=== PATIENT | male | born 1980 | race Caucasian/White ===

== ENCOUNTER 2021-11-17 20:24 | Emergency (ER) | payer OTHER, SELFPAY ==
[2021-11-17 20:34] VITALS: BP 140/96; PULSE 86; RESP 18; TEMP 36.8; O2SAT 99; BMI 20.9
[2021-11-17 20:40] VITALS: BP 140/96; PULSE 86; RESP 18; TEMP 36.8; O2SAT 99; BMI 20.9
[2021-11-17 20:56] LABS: Apearance,Urine Clear (Clear); Bilirubin,Urine Negative (Negative); Blood, Urine Trace (Negative); Color,Urine Yellow (Yellow); Glucose,Urine (UA) Negative (Negative); Ketones,Urine Negative (Negative); Protein,Urine Negative (Negative); UTC Leukocyte Esterase,Urine Negative (Negative); UTC Nitrate,Urine Negative (Negative); Urobilinogen,Urine 0.2 EU/dl (0.2)
--- NOTE | 2021-11-17 21:11 | HMH.EDUTC ---
[facility] [place] Disposition Clinical Impression: Groin strain Qualifiers: Encounter type: initial encounter Laterality: unspecified laterality Qualified Code(s): S76.219A - Strain of adductor muscle, fascia and tendon of unspecified thigh, initial encounter Disposition: Home, Self-Care Condition on Discharge: Good Instructions: Groin Strain, DI for Groin Strain Additional Instructions: Follow up with your Family Doctor immediately if any worsening of pain Follow up immediately if you noticed any blood in your urine or discharge Return if needed Straight to ER if any life threatening symptoms Follow up with Family Doctor if no improvement Referrals: Bradley Aaron MD [Primary Care Provider] - As needed Time of Disposition: 21:34 Medical Decision Making - Bebeto Inquiry Pt receiving controlled substance: No Bebeto was queried for this patient: No Vital Signs: 11/17/21 20:34 11/17/21 20:40 11/17/21 21:28 Temperature 98.2 F 98.2 F 98.2 F Temperature Source Oral Oral Pulse Rate 86 Pulse Rate [Right] 86 86 Respiratory Rate 18 18 18 Blood Pressure 140/96 H Blood Pressure [Right Arm] 140/96 H 140/96 H Blood Pressure Mean [Right Arm] 110 110 Blood Pressure Source [Right Arm] Automatic Cuff Blood Pressure Position [Right Arm] Sitting 02 Sat by Pulse Oximetry 99 99 Oxygen Delivery Method Room Air - Lab Data Lab results reviewed: Yes: I reviewed the patient's lab results. Lab Results 11/17/21 20:55: Urine Color Yellow, Urine Appearance Clear, Urine pH 7.0, Ur Specific [place] 1.010, Urine Protein Negative, Urine Glucose (UA) Negative, Urine Ketones Negative, Urine Blood Trace, Urine Nitrate Negative, Urine Bilirubin Negative, Urine Urobilinogen 0.2, Ur Leukocyte Esterase Negative [facility] [place] HPI - General Stated complaint: Pain in privates Time Seen by Provider: 11/17/21 21:11 Mode of Arrival: Ambulatory Source of Information: Patient Limitations: No Limitations Description of Symptoms (Recalled from Triage Doc. by RN): PATIENT C/O SHARP PAIN IN PRIVATE AREA X 2 DAYS HEENT Symptoms (Recalled from RN notes): No Resp Symptoms (Recalled from RN notes): No Skin Symptoms (Recalled from RN notes): No MS Symptoms (Recalled from RN notes): No Functional Status (Recalled from RN notes): WNL - History of Present Illness Provider Complaint: Patient states he was changing his break pads the other day and had to strain to get the lug nuts to break State that he has been having pain in his groin area ever since not sure if he may have pulled a muscle or if he may have a kidney infection because he does drink alot of pop and tea States that he is not hurting at this time - Related Data Previous Rx's Medication Instructions Recorded varenicline 0.5 mg (11)-1 mg (42) See Rx Instructions PO PER PKG DIR 04/01/19 tablets in a dose pack #53 tab aspirin 81 mg tablet,delayed 81 mg PO DAILY #90 tab 08/02/19 release atorvastatin 40 mg tablet 40 mg PO DAILY #90 tab 08/02/19 bupropion HCl 75 mg tablet 75 mg PO BID #180 tab 08/02/19 Allergies Allergy/AdvReac Type Severity Reaction Status Date / Time No Known Allergies Allergy Verified 05/13/18 11:16 - Worker's Comp Is this a Worker's Comp case?: No [facility] History - Hepatitis A Screen Drug use history?: No High risk sexual behaviors?: No History of sexually transmitted infection?: No Currently employed?: No Childcare worker?: No Do you have indoor plumbing?: Yes Do you have electricity?: Yes Attestation statement:: This patient has been screened for Hepatitis A risk factors. I have reviewed the patient's past medical history: Yes Medical History: Reports:: Anxiety, Coronary Artery Disease, Cerebrovascular Accident, Seizures Other Surgeries: Yes: Other (left arm,left ankle) Amputation: No Fractures: Yes - Social History Smoking Status: Current every day smoker Tobacco Type: cigarettes # Packs/Day (cigarettes): 20 Alcohol Intake: never Substance U
[2021-11-17 21:28] VITALS: BP 140/96; PULSE 86; RESP 18; TEMP 36.8; O2SAT 99
== END 2021-11-17 21:43 | disposition home or self-care (01) ==
PROVIDERS: Emergency Provider Nurse Practitioner; PCP Emergency Medicine
DX: S76.219A Strain of adductor muscle, fascia and tendon of unspecified thigh, initial encounter (principal); R10.30 Lower abdominal pain, unspecified; F41.9 Anxiety disorder, unspecified; I25.10 Atherosclerotic heart disease of native coronary artery without angina pectoris; F17.210 Nicotine dependence, cigarettes, uncomplicated
CPT/HCPCS: 81003; 99212; G0463

== ENCOUNTER 2024-04-16 16:41 | Emergency (ER) | payer OTHER, SELFPAY ==
[2024-04-16 16:42] VITALS: BP 130/94; PULSE 82; RESP 13; TEMP 36.6; O2SAT 100
--- NOTE | 2024-04-16 16:47 | ECG_ITS ---
APPROVED REPORT Exam: Resting ECG HR:74 bpm ECG Measurements Heart Rate 74 AXES MS 131 P 73 QRSd 106 QRS 62 QT 381 T 70 QTc 408 Conclusion SINUS RHYTHM NORMAL ECG Electronically signed by : ARMAND NIEVES, 04/16/2024 23:51:57
--- NOTE | 2024-04-16 16:56 | CT_ITS ---
PROCEDURE INFORMATION: Exam: CTA Head With Contrast, Arteriography Exam date and time: 04/16/2024 5:24 PM Age: 43 years old Clinical indication: Weakness TECHNIQUE: Imaging protocol: Computed tomographic angiography of the head with contrast. Exam focused on the arteries. 3D rendering (Not supervised by radiologist): MIP and/or 3D reconstructed images were created by the technologist. Radiation optimization: All CT scans at this facility use at least one of these dose optimization techniques: automated exposure control; mA and/or kV adjustment per patient size (includes targeted exams where dose is matched to clinical indication); or iterative reconstruction. Contrast material: ISOVUE; Contrast volume: 80 ml; Contrast route: INTRAVENOUS (IV); COMPARISON: CT HEAD/BRAIN WO CON 04/16/2024 5:22 PM FINDINGS: ANTERIOR CIRCULATION: Right internal carotid artery: Intracranial segment is patent with no significant stenosis. No aneurysm. Right middle cerebral artery: No occlusion or significant stenosis. No aneurysm. Right anterior cerebral artery: No occlusion or significant stenosis. No aneurysm. Left internal carotid artery: Intracranial segment is patent with no significant stenosis. No aneurysm. Left middle cerebral artery: No occlusion or significant stenosis. No aneurysm. Left anterior cerebral artery: No occlusion or significant stenosis. No aneurysm. POSTERIOR CIRCULATION: Right vertebral artery: No occlusion or significant stenosis. No aneurysm. Left vertebral artery: No occlusion or significant stenosis. No aneurysm. Basilar artery: No occlusion or significant stenosis. No aneurysm. Right posterior cerebral artery: No occlusion or significant stenosis. No aneurysm. Left posterior cerebral artery: No occlusion or significant stenosis. No aneurysm. Brain: No definite mass, mass effect, or midline shift. Cerebral ventricles: No ventriculomegaly. Bones/joints: Unremarkable. No acute fracture. Soft tissues: Unremarkable. IMPRESSION: No large vessel stenosis or occlusion.
--- NOTE | 2024-04-16 16:56 | CT_ITS ---
PROCEDURE INFORMATION: Exam: CTA Neck With Contrast Exam date and time: 04/16/2024 5:24 PM Age: 43 years old Clinical indication: Weakness TECHNIQUE: Imaging protocol: Computed tomographic angiography of the neck with contrast. Exam focused on the cervical segments of the vasculature. 3D rendering (Not supervised by radiologist): MIP and/or 3D reconstructed images were created by the technologist. Radiation optimization: All CT scans at this facility use at least one of these dose optimization techniques: automated exposure control; mA and/or kV adjustment per patient size (includes targeted exams where dose is matched to clinical indication); or iterative reconstruction. Contrast material: ISOVUE; Contrast volume: 80 ml; Contrast route: INTRAVENOUS (IV); COMPARISON: CT ANGIO HEAD 04/16/2024 5:24 PM FINDINGS: Right common carotid artery: No stenosis. No dissection or occlusion. Right internal carotid artery: No stenosis of the extracranial segment. No dissection or occlusion. Right external carotid artery: No occlusion or stenosis of the origin. Left common carotid artery: No stenosis. No dissection or occlusion. Left internal carotid artery: No stenosis of the extracranial segment. No dissection or occlusion. Left external carotid artery: No occlusion or stenosis of the origin. Right vertebral artery: No stenosis. No dissection or occlusion. Left vertebral artery: No stenosis. No dissection or occlusion. Soft tissues: Normal. No significant soft tissue swelling. Bones/joints: No acute fracture. Other findings: Emphysema. IMPRESSION: No stenosis or occlusion. REFERENCES: NASCET CRITERIA. The degree of stenosis in the cervical segment of the internal carotid artery is based on NASCET criteria. Normal is no stenosis. Mild is less than 50% stenosis. Moderate is 50-69% stenosis. Severe is 70% to 99% stenosis. Total occlusion is no detectable patent lumen.
--- NOTE | 2024-04-16 16:56 | XR_ITS ---
PROCEDURE INFORMATION: Exam: XR Chest Exam date and time: 04/16/2024 5:06 PM Age: 43 years old Clinical indication: Other: Weakness TECHNIQUE: Imaging protocol: Radiologic exam of the chest. Views: 2 views. COMPARISON: CR CXR1 CHEST-PORTABLE 07/04/2017 4:16 PM FINDINGS: Lungs: Unremarkable. No consolidation. Pleural spaces: Unremarkable. No pleural effusion. No pneumothorax. Heart/Mediastinum: Unremarkable. No cardiomegaly. Bones/joints: Unremarkable. IMPRESSION: No acute findings.
--- NOTE | 2024-04-16 16:56 | CT_ITS ---
PROCEDURE INFORMATION: Exam: CT Head Without Contrast Exam date and time: 04/16/2024 5:22 PM Age: 43 years old Clinical indication: Other: Weakness TECHNIQUE: Imaging protocol: Computed tomography of the head without contrast. Radiation optimization: All CT scans at this facility use at least one of these dose optimization techniques: automated exposure control; mA and/or kV adjustment per patient size (includes targeted exams where dose is matched to clinical indication); or iterative reconstruction. COMPARISON: HDWO CT HEAD W/O CONTRAST 07/04/2017 3:34 PM FINDINGS: Brain: No acute intracranial hemorrhage. No mass, mass effect or midline shift. Cerebral ventricles: Interval development of ex vacuo enlargement of the right lateral ventricle involving the anterior horn and body thought related to the previously noted acute/subacute right basal ganglion infarct on CT of 07/04/2017. No other acute abnormalities identified. Paranasal sinuses: Visualized sinuses are unremarkable. No fluid levels. Mastoid air cells: Visualized mastoid air cells are well aerated. Bones: Unremarkable. No acute fracture. Soft tissues: Unremarkable. IMPRESSION: 1. No acute abnormality. 2. Interval development of ex vacuo enlargement of the right lateral ventricle.
[2024-04-16 17:15] LABS: Basophils # 0.1 K/mm3 (0-0.2); Eosinophils # 0.3 K/mm3 (0.0-0.4); Eosinophils % 2.5 % (0.1-12.0); Hematocrit 42.4 % (42.0-52.0); Hemoglobin 15.3 g/dL (14.1-18.0); Lymphocytes # 3.7 K/mm3 (0.7-4.5); Lymphocytes % 30.2 % (10-50); Mean Corpuscular HGB Conc 36.1 g/dL (31.8-35.4); Mean Corpuscular Hemoglobin 33.3 pg (27.0-31.2); Mean Corpuscular Volume 92.3 fl (80-94); Mean Platelet Volume 7.9 fl (7.4-10.4); Monocytes # 0.7 K/mm3 (0.1-1.0); Monocytes % 5.8 % (1.7-9.3); Neutrophils # 7.3 K/mm3 (1.8-7.8); Neutrophils % 60.3 % (37.0-80.0); Platelet Count 260 K/mm3 (142-424); Red Blood Count 4.59 M/mm3 (4.60-6.20); Red Cell Distribution Width 17.1 % (11.5-17.5); White Blood Count 12.1 K/mm3 (4.8-10.8)
[2024-04-16 17:17] LABS: Alanine Aminotransferase 16 U/L (12-78); Albumin Level 4.4 g/dl (3.5-5.0); Albumin/Globulin Ratio 1.5 (1.1-1.8); Alkaline Phosphatase 71 U/L (38-126); Anion Gap 10.6 mEq/L (5-15); Aspartate Amino Transferase 25 U/L (17-59); Bilirubin,Total 0.4 mg/dl (0.2-1.3); Blood Urea Nitrogen 5 mg/dl (9-20); Calcium 9.3 mg/dl (8.4-10.2); Carbon Dioxide 27 mmol/L (22.0-30.0); Chloride 105 mmol/L (98-107); Creatinine Clearance Estimated 111 mL/min (50-200); Estimated Glomerular Filt Rate 106 ml/min (>60); GFR (African American) 128 ML/MIN (>60); Glucose 81 mg/dl (74-100); Potassium 3.6 mmoL/L (3.5-5.1); Sodium 139 mmol/L (136-145); Total Protein,Serum 7.4 g/dl (6.3-8.2)
--- NOTE | 2024-04-16 17:17 | ED_ITS ---
Discharge Plan Disposition Patient Disposition: Home, Self-Care Condition: Good Prescriptions Prescriptions: No Action No Known Home Medications prednisone 20 mg tablet 20 mg PO BID Qty: 10 0RF benzonatate 100 mg capsule 100 mg PO BID PRN (Reason: cough) Qty: 20 0RF fluticasone propionate [Flonase Allergy Relief] 50 mcg/actuation spray,suspension 1 spray intranasal DAILY Qty: 16 2RF Rx Instructions: administer into each nostril Referrals Follow up/Referrals: Provider,Referral, [Primary Care Provider] - See instructions Activity Restrictions/Add. Instructions Additional Instructions/Restrictions: You were evaluated in the ER and are appropriate for discharge at this time. Continue taking home medications as prescribed. Please make an appointment with your primary care physician for reevaluation in 2 to 3 days. Return to the ER with new, worsening, or otherwise concerning symptoms. Clinical Impressions Clinical Impression: Weakness Print Language Print Language: Kinyarwanda Discharge ED Provider: Ebony Coto General Adult HPI General Chief complaint: Weakness Stated complaint: loss of motion in left arm and leg Time Seen by Provider: 04/16/24 16:44 Mode of Arrival: Ambulatory Source of Information: Patient Limitations: No Limitations Description of Symptoms (Recalled from ER Triage Doc. by RN): c/o weakness in his left arm and leg causing his to feel like he needs more effort to raise his arm since around 3-4 yesterday. Dizziness that started this morning History of Present Illness HPI narrative: 43-year-old male with a history of prior stroke that affected his left side presents to the ER for concerns of his left arm and leg feeling weak. He is still able to move them but states it feels like it has been more effort to do so since around 3 to 4 PM yesterday. This is more than 24 hours prior to arrival. Patient reports he is also having mild lightheadedness and reports he has had intermittent left-sided chest pains for more than a year. Patient states he works through the chest pain, it is not exertional, he has not found anything that specifically makes it worse or better. He is not having chest pain at this time. Patient was ambulatory into the ER. Related Data Home Medications ?Medication ?Instructions ?Recorded ?Confirmed No Known Home Medications 09/16/23 09/16/23 Previous Rx's ?Medication ?Instructions ?Recorded benzonatate 100 mg capsule 100 mg PO BID PRN cough #20 caps 01/16/24 fluticasone propionate 50 1 spray intranasal DAILY #16 grams 09/16/23 mcg/actuation nasal spray,suspension (Flonase Allergy Relief) prednisone 20 mg tablet 20 mg PO BID #10 tabs 09/16/23 Allergies Allergy/AdvReac Type Severity Reaction Status Date / Time No Known Allergies Allergy Verified 09/16/23 15:00 [facility] Disclaimer: The information contained in this section may have been updated after the patient was seen, as this information can be updated by other users. Medical History (Updated 04/16/24 @ 18:08 by Ebony Coto MD) Groin strain Surgical History (Updated 09/16/23 @ 15:01 by Indu Mercedes) No significant past surgical history Family History (Updated 09/16/23 @ 15:01 by Indu Mercedes) Other No significant family history Social History (Updated 09/16/23 @ 20:55 by PRECIOUS Juarez) Smoking Status: Former smoker tobacco type: cigarettes packs per day: 20 alcohol intake: never substance use type: denies use current occupational status: unemployed Travel in the last 8 weeks: None ROS Obtained: Yes All systems reviewed & no additional complaints except as documented Positive ROS per HPI Physical Exam General General appearance: alert and in no apparent distress Head Head exam: atraumatic and normocephalic Eye Eye exam: Present PERRL and EOMI ENT ENT exam: Present mucous membranes moist Neck Neck exam: Present normal inspection and full ROM Chest Chest inspection: Present symmetric chest wall rise Respiratory Respiratory exam: Present normal lung sounds bilaterally; Absent respiratory distress, wheezes or stridor Cardiovascular Cardiovascular exam: Present regular rate and normal rhythm Abdominal Exam Abdominal exam: Present soft; Absent distention or tenderness Extremities Exam Extremities exam: Present full ROM; Absent tenderness or edema Back Exam Back exam: Present full ROM Neurological Exam Neurological exam: Present alert, oriented X3, CN II-XII intact and normal gait; Absent motor sensory deficit (POD 5 strength in all extremities, sensory intact, normal finger-nose and [id number], NIH 0) Psychiatric Psychiatric exam: Present normal affect and normal mood Skin Skin exam: Present warm and dry Medical Decision Making Medical Records Medical records reviewed: Yes I reviewed the patient's medical records. MR Comment: Patient seen in 2021 by [facility] for groin strain, seen in September 2023 for influenza B by family medicine. Bebeto Inquiry Pt receiving controlled substance: No Vital Signs: 04/16/24 16:42 Temperature 97.9 F Temperature Source Oral Pulse Rate [Left Radial] 82 Respiratory Rate 13 Blood Pressure [Right Arm] 130/94 H Blood Pressure Mean [Right Arm] 106 02 Sat by Pulse Oximetry 100 Oxygen Delivery Method Room Air Lab Data Lab Results 04/16/24 16:45: WBC 12.1 H, RBC 4.59 L, Hgb 15.3, Hct 42.4, MCV 92.3, MCH 33.3 H , MCHC 36.1 H, RDW 17.1, Plt Count 260, MPV 7.9, Neut % (Auto) 60.3, Lymph % (Auto) 30.2, [place] % (Auto) 5.8, Eos % (Auto) 2.5, Baso % (Auto) 1.0, Neut # (Auto) 7.3, Lymph # (Auto) 3.7, [place] # (Auto) 0.7, Eos # (Auto) 0.3, Baso # (Auto) 0.1, Sodium 139, Potassium 3.6, Chloride 105, Carbon Dioxide 27, Anion Gap 10.6, BUN 5 L, Creatinine 0.80, Estimated Creat Clear 111, Estimated GFR 106, Est GFR ( Amer) 128, Glucose 81, Calcium 9.3, Total Bilirubin 0.4, AST 25, ALT 16, Alkaline Phosphatase 71, Troponin I < 0.01, Total Protein 7.4, Albumin 4.4, Globulin 3.0, Albumin/Globulin Ratio 1.5 04/16/24 16:45 04/16/24 16:45 Orders (Tests/Meds): ED MEDICATIONS Discontinued Medications Generic Name Dose Route Start Last Admin Trade Name Freq PRN Reason Stop Dose Admin Iopamidol 80 ml 04/16/24 17:23 04/16/24 17:24 Iopamidol-370 (76%);100ml Bottle IV 04/16/24 17:24 80 ml ONCE ONE Administration Sodium Chloride 10 ml 04/16/24 17:23 04/16/24 17:24 Sodium Chloride 0.9% 10ml Syr (Rad Only) IV 04/16/24 17:24 10 ml ONCE ONE Administration Sodium Chloride 50 ml 04/16/24 17:23 04/16/24 17:23 0.9 % Sodium Chloride 50 Ml Vial IV 04/16/24 17:24 50 ml ONCE ONE Administration ORDERS Category Date Time Status CT angio head Stat Cat Scan 04/16/24 16:[address] angio neck Stat Cat Scan 04/16/24 16:[address] head/brain wo con Stat Cat Scan 04/16/24 16:56 Completed XR chest 2V Stat Exams 04/16/24 16:56 Completed Complete Blood Count Auto Diff Stat Lab 04/16/24 16:45 Completed Comprehensive Metabolic Panel Stat Lab 04/16/24 16:45 Completed Troponin I Q3H Lab 04/16/24 20:00 Ordered Troponin I Q3H Lab 04/16/24 23:00 Ordered Troponin I Stat Lab 04/16/24 16:45 Completed Medical Decision Narrative: In summary, this 43-year-old male presents to the emergency department today with subjective left-sided weakness in the arm and leg, dizziness. On initial evaluation patient is hemodynamically stable, afebrile, GCS 15, no focal neurologic deficits, NIH 0, no nystagmus, patient had complained of chest pain intermittently but is not actively having any, cardiopulmonary exam benign. Differential diagnosis includes but is not limited to intracranial bleed, ischemic stroke, vessel stenosis, ACS, electrolyte abnormality, pneumothorax. Based on these concerns, I ordered basic labs, CT head, CTA head and neck, cardiac workup. ECG personally interpreted demonstrates normal sinus rhythm, rate 74, normal axis, normal TX and QTc, no STEMI. Labs personally reviewed demonstrate mild leukocytosis but no anemia, platelets normal CMP nonactionable, initial troponin undetectably low at less than 0.01, given duration of patient's symptoms and lack of chest pain at this time as well as reassuring ECG I do not believe serial troponin is necessary.. XR personally interpreted demonstrates no acute intrathoracic abnormality, see radiology read final interpretation. CT imaging personally interpreted demonstrate no acute intracranial bleed, mass, midline shift, no acute areas of stenosis or findings of stroke. See radiology read for final interpretation.. On reassessment patient continues to be stable and is appropriate for discharge at this time. Patient was given instructions on symptomatic management, follow up instructions, and return precautions for the emergency department. Patient indicated understanding and was discharged in stable condition. Critical Care Critical Care Time Critical Care Time: No
[2024-04-16] MEDS: 0.9 % SODIUM CHLORIDE 50 ML VIAL IV (17:23)
[2024-04-16] MEDS: SODIUM CHLORIDE 0.9% 10ML SYR (RAD ONLY) 10 ML IV (17:24)
[2024-04-16] MEDS: IOPAMIDOL-370 (76%);100ML BOTTLE 80 ML IV (17:24)
[2024-04-16 17:43] LABS: Troponin I < 0.01 ng/ml (0.00-0.034)
[2024-04-16 18:11] VITALS: BP 111/77; PULSE 75; RESP 18; TEMP 36.6; O2SAT 98
== END 2024-04-16 18:17 | disposition home or self-care (01) ==
PROVIDERS: Emergency Provider Emergency Medicine
DX: I69.354 Hemiplegia and hemiparesis following cerebral infarction affecting left non-dominant side (principal); R07.89 Other chest pain; R42 Dizziness and giddiness; R53.1 Weakness
CPT/HCPCS: 70450; 70496; 70498; 71046; 80053; 84484; 85025; 93005; 99285; Q9967

== ENCOUNTER 2024-10-25 15:12 | Observation (INO) | payer OTHER, SELFPAY ==
[2024-10-25] VITALS (10 sets, daily range): BP systolic 111–163; BP diastolic 84–110; PULSE 68–107; RESP 15–20; TEMP 36.4–36.8; O2SAT 95–100; BMI 20.9; BMI 18.8
--- NOTE | 2024-10-25 15:16 | ECG_ITS ---
APPROVED REPORT Exam: Resting ECG HR:93 bpm ECG Measurements Heart Rate [address] 129 P 70 QRSd 99 QRS 41 QT 353 T 61 QTc 404 Conclusion SINUS RHYTHM POSSIBLE LEFT ATRIAL ENLARGEMENT [-0.1mV P-WAVE IN V1/V2] BORDERLINE ECG Electronically signed by : DENNISE ALONSO, 10/25/2024 22:42:13
--- NOTE | 2024-10-25 15:21 | CT_ITS ---
FINAL REPORT CLINICAL HISTORY: possible stroke COMPARISON: 04/16/2024 FINDINGS: CTA HEAD TECHNIQUE: Thin section axial CT with contrast with 3D MIP reconstruction This study was performed with techniques to keep radiation doses as low as reasonably achievable, (ALARA). Individualized dose reduction techniques using automated exposure control or adjustment of mA and/or kV according to the patient's size were employed. FINDINGS: No aneurysm is seen. Major intracranial vessels are patent without significant stenosis. . IMPRESSION: Unremarkable This study was performed using automated techniques to achieve radiation exposure as low as reasonably achievable Reviewed, Interpreted and Dictated by Claribel Esparza MD Transcribed by Marimar Mckeon Authenticated and . [facility]
--- NOTE | 2024-10-25 15:21 | CT_ITS ---
FINAL REPORT TECHNIQUE: Noncontrast exam This study was performed with techniques to keep radiation doses as low as reasonably achievable, (ALARA). Individualized dose reduction techniques using automated exposure control or adjustment of mA and/or kV according to the patient's size were employed. CLINICAL HISTORY: possible stroke COMPARISON: 04/16/2024 FINDINGS: There is a small chronic lacunar infarct present in the right frontal white matter best seen on image #53. The remainder of the brain parenchyma is unremarkable. There is mild chronic asymmetric enlargement of the right ventricle, probably secondary to a right caudate infarct in the past. No acute intracranial abnormality is noted. There is no hemorrhage. No mass effect is seen. Bone windows show no evidence of fracture. IMPRESSION: No acute findings Chronic changes stable since the prior CT of 04/16/2024. Reviewed, Interpreted and Dictated by Claribel Esparza MD Transcribed by Marimar Mckeon Authenticated and [facility]
--- NOTE | 2024-10-25 15:21 | XR_ITS ---
FINAL REPORT CLINICAL HISTORY: stroke alert COMPARISON: None FINDINGS: No acute pulmonary opacity is present. There is no evidence of effusion or pneumothorax. Mediastinum is unremarkable. Heart size is normal. IMPRESSION: No acute abnormality. Reviewed, Interpreted and Dictated by Claribel Esparza MD Transcribed by Jessenia Cifuentes Authenticated and . [facility]
--- NOTE | 2024-10-25 15:21 | CT_ITS ---
FINAL REPORT CLINICAL HISTORY: possible stroke COMPARISON: 04/16/2024 FINDINGS: CT NECK ANGIO, WITHOUT AND WITH CONTRAST TECHNIQUE: Thin section axial CT with contrast with multiplanar 3D MIP reconstruction. This study was performed with techniques to keep radiation doses as low as reasonably achievable, (ALARA). Individualized dose reduction techniques using automated exposure control or adjustment of mA and/or kV according to the patient's size were employed. NASCET criteria and technique was utilized during interpretation. FINDINGS: Aortic arch: Arch shows no significant narrowing. Great vessel origins are widely patent. Right carotid: No significant stenosis is seen of the cervical common or internal carotid artery. Left carotid: No significant stenosis is seen of the cervical common or internal carotid artery. Vertebrals: The vertebral arteries are codominant. No significant stenosis is present. IMPRESSION: No significant stenosis of the cervical carotid arteries This study was performed using automated techniques to achieve radiation exposure as low as reasonably Reviewed, Interpreted and Dictated by Claribel Esparza MD Transcribed by Marimar Mckeon Authenticated and . [facility]
--- NOTE | 2024-10-25 15:21 | PC.NURSE ---
Pt taken to CT by Nurse Roldan and Medic Santana
--- NOTE | 2024-10-25 15:25 | ED_ITS ---
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 Patient reports he went to bed for a nap around 2:30 AM completely normal. He woke up around noon with left arm weakness and tingling. He states that he thought he slept on it wrong so he waited a bit, but it did not improve. He notes this is worse than his usual deficits from his prior stroke. No other concerns such as headache, vision changes, or other numbness/tingling/weakness. No recent illnesses, such as fever, cough, congestion, abdominal pain, vomiting, or other concerns. Related Data Home Medications ?Medication ?Instructions ?Recorded ?Confirmed No Known Home Medications 09/16/23 10/25/24 Allergies Allergy/AdvReac Type Severity Reaction Status Date / Time No Known Allergies Allergy Verified 09/16/23 15:00 [facility] Disclaimer: The information contained in this section may have been updated after the patient was seen, as this information can be updated by other users. Medical History Groin strain Surgical History No significant past surgical history Family History Other No significant family history Social History Smoking Status: Current every day smoker tobacco type: cigarettes packs per day: 20 alcohol intake: never substance use type: denies use current occupational status: unemployed Travel in the last 8 weeks: None Have you lived/traveled outside US in past 30 days?: No Contact w/someone who lives/traveled outside US past 30 days?: No Exposure to someone with infectious disease in past 14 days?: No Do you have a fever (greater than 100.4 F or 38 C)?: No Have you tested positive for COVID-19: No Exposed to someone with COVID-19 in past 14 days?: No Do you have a sore throat?: No Do you have a cough?: No Do you have any weakness?: Yes Do you have any diarrhea?: No Are you experiencing any unusual bleeding?: No Do you have any muscle aches/pain?: No Do you have any abdominal pain?: No Are you experiencing loss of taste or smell?: No Other Medical History Have you received the Flu Vaccine for this season: No Have you received the Pneumonia Vaccine: No ROS Obtained: Yes All systems reviewed & no additional complaints except as documented Physical Exam General General appearance: alert and in no apparent distress Head Head exam: atraumatic and normocephalic Eye Eye exam: Present normal appearance, PERRL and EOMI ENT ENT exam: Present normal exam, normal oropharynx, mucous membranes moist and normal external ear exam Neck Neck exam: Present normal inspection, full ROM and trachea midline; Absent tenderness Chest Chest inspection: Present normal inspection and symmetric chest wall rise; Absent tenderness Respiratory Respiratory exam: Present normal lung sounds bilaterally; Absent respiratory distress, wheezes, stridor or accessory muscle use Cardiovascular Cardiovascular exam: Present regular rate and normal rhythm Abdominal Exam Abdominal exam: Present soft; Absent distention, tenderness or guarding Extremities Exam Extremities exam: Present normal inspection, full ROM and normal capillary refill; Absent tenderness or edema Back Exam Back exam: Present normal inspection and full ROM; Absent tenderness Neurological Exam Neurological exam: Present alert, oriented X3, CN II-XII intact, normal gait, motor sensory deficit and other (Left upper extremity drift but does not hit bed. Subjective decrease in sensation of the left upper extremity. Otherwise, no focal neurologic deficits noted on full neuroexam. NIH stroke scale of 2.) Psychiatric Psychiatric exam: Present normal affect and normal mood Skin Skin exam: Present warm and dry Medical Decision Making Medical Records Medical records reviewed: Yes I reviewed the patient's medical records. Screening: Per USPSTF and CDC recommendations, given the prevalence of disease in our region, it is our hospital?s policy to screen for HIV and viral Hepatitis for all patients aged 18 and over and those with ongoing risk factors. [place] Inquiry Pt receiving controlled substance: No Vital Signs: 10/25/24 15:13 10/25/24 15:37 10/25/24 16:15 Temperature 98.0 F Temperature Source Oral Pulse Rate 89 85 Pulse Rate [Left Radial] 107 H Respiratory Rate 19 18 Blood Pressure 111/90 154/110 H Blood Pressure [Right Arm] 163/96 H Blood Pressure Mean [Right Arm] 118 Blood Pressure Source Blood Pressure Position 02 Sat by Pulse Oximetry 100 100 97 Oxygen Delivery Method Room Air Room Air 10/25/24 16:24 10/25/24 16:33 10/25/24 17:00 Temperature Temperature Source Pulse Rate 68 70 81 Pulse Rate [Left Radial] Respiratory Rate 18 20 15 Blood Pressure 154/110 H 142/84 H 145/92 H Blood Pressure [Right Arm] Blood Pressure Mean [Right Arm] Blood Pressure Source Blood Pressure Position 02 Sat by Pulse Oximetry 99 95 99 Oxygen Delivery Method Room Air Room Air Room Air 10/25/24 17:35 Temperature 98.0 F Temperature Source Pulse Rate 69 Pulse Rate [Left Radial] Respiratory Rate 18 Blood Pressure 145/92 H Blood Pressure [Right Arm] Blood Pressure Mean [Right Arm] Blood Pressure Source Automatic Cuff Blood Pressure Position Sitting 02 Sat by Pulse Oximetry Oxygen Delivery Method Room Air Lab Data Lab results reviewed: Yes I reviewed the patient's lab results. Lab Results 10/25/24 15:17: WBC 13.5 H, RBC 4.90, Hgb 15.3, Hct 44.3, MCV 90.4, MCH 31.2, MCHC 34.5, RDW 13.1, Plt Count 245, MPV 9.5, Neut % (Auto) 67.5, Lymph % (Auto) 23.1, [place] % (Auto) 6.3, Eos % (Auto) 2.3, Baso % (Auto) 0.5, Neut # (Auto) 9.1 H, Lymph # (Auto) 3.1, [place] # (Auto) 0.9, Eos # (Auto) 0.3, Baso # (Auto) 0.1, PT 10.4, INR 0.94, APTT 27.9, Sodium 138, Potassium 3.3 L, Chloride 100, Carbon Dioxide 27, Anion Gap 14.3, BUN 7 L, Creatinine 0.90, Estimated GFR 93, Est GFR ( Amer) 112, Glucose 115 H, Calcium 9.3, Total Bilirubin 0.8, AST 35, ALT 21, Alkaline Phosphatase 77, Troponin I < 0.01, Total Protein 7.4, Albumin 4.8, Globulin 2.6, Albumin/Globulin Ratio 1.8, Triglycerides 158 H, Cholesterol 204 H , LDL Cholesterol Direct 125.23, VLDL Cholesterol 32, HDL Cholesterol 31 L, C holesterol/HDL Ratio 6.6 H, Plasma/Serum Alcohol < 10 10/25/24 15:54: Urine Color Yellow, Urine Appearance Clear, Urine pH 7.0, Ur Specific [place] 1.010, Urine Protein Negative, Urine Glucose (UA) Negative, Urine Ketones Negative, Urine Blood Negative, Urine Nitrate Negative, Urine Bilirubin Negative, Urine Urobilinogen 0.2, Ur Leukocyte Esterase Negative, Urine RBC None, Urine WBC 5-10, Ur Squamous Epith Cells Occasional, Urine Bacteria Trace, Urine Opiates Screen Negative, Urine Methadone Screen Negative, Ur Barbituates Screen Negative, Ur Phencyclidine Scrn Negative, Ur Amphetamines Screen Negative, U Benzodiazepines Scrn Negative, Urine Cocaine Screen Negative, U Marijuana (THC) Screen Positive H 10/25/24 15:17 10/25/24 15:17 Orders (Tests/Meds): ED MEDICATIONS Generic Name Dose Route Start Last Admin Trade Name Freq PRN Reason Stop Dose Admin Aspirin 81 mg 10/26/24 09:00 Aspirin Ec 81mg Tablet PO 11/25/24 08:59 DAILY TIMOTHY Aspirin 325 mg 10/25/24 17:26 Aspirin 325mg Tablet PO 10/25/24 17:27 ONCE ONE Atorvastatin Calcium 40 mg 10/25/24 21:00 Atorvastatin 40mg Tablet PO 11/24/24 20:59 HS TIMOTHY Clopidogrel Bisulfate 75 mg 10/25/24 17:24 Clopidogrel 75mg Tab PO 10/25/24 17:25 ONCE ONE Sodium Chloride 10 ml 10/25/24 15:21 10/25/24 15:30 Sodium Chloride 0.9% 10ml Flush Syringe IV 11/24/24 15:20 10 ml NEEDED PRN Administration Maintain IV Site Discontinued Medications Generic Name Dose Route Start Last Admin Trade Name Freq PRN Reason Stop Dose Admin Iopamidol 80 ml 10/25/24 15:29 Iopamidol-370 (76%);100ml Bottle IV 10/25/24 15:30 ONCE ONE Potassium Chloride 60 meq 10/25/24 16:46 10/25/24 16:54 Potassium Chloride 20meq Tab PO 10/25/24 16:47 60 meq ONCE ONE Administration Sodium Chloride 50 ml 10/25/24 15:29 10/25/24 15:30 0.9 % Sodium Chloride 50 Ml Vial IV 10/25/24 15:30 50 ml ONCE ONE Administration Sodium Chloride 10 ml 10/25/24 15:29 10/25/24 15:30 Sodium Chloride 0.9% 10ml Syr (Rad Only) IV 10/25/24 15:30 10 ml ONCE ONE Administration ORDERS Category Date Time Status CT angio head Stat Cat Scan 10/25/24 15:[address] angio neck Stat Cat Scan 10/25/24 15:[address] head/brain wo con Stat Cat Scan 10/25/24 15:21 Completed XR chest portable Stat Exams 10/25/24 15:21 Completed Activated Partial Thrombo Time Stat Lab 10/25/24 15:17 Completed Complete Blood Count Auto Diff AMLAB Lab 10/26/24 06:00 Ordered Complete Blood Count Auto Diff Stat Lab 10/25/24 15:17 Completed Comprehensive Metabolic Panel AMLAB Lab 10/26/24 06:00 Ordered Comprehensive Metabolic Panel Stat Lab 10/25/24 15:17 Completed Drug Screen,Urine Stat Lab 10/25/24 15:54 Completed Ethyl Alcohol Stat Lab 10/25/24 15:17 Completed HIV Combo Stat Lab 10/25/24 15:57 Ordered Hepatitis C Ab Qual. W/ RFX Stat Lab 10/25/24 15:57 Ordered Lipid Panel Stat Lab 10/25/24 15:17 Completed Magnesium AMLAB Lab 10/26/24 06:00 Ordered Prothrombin Time INR Stat Lab 10/25/24 15:17 Completed Troponin I Q3H Lab 10/25/24 18:30 Ordered Troponin I Q3H Lab 10/25/24 21:30 Ordered Troponin I Stat Lab 10/25/24 15:17 Completed Urinalysis and Microscopic Stat Lab 10/25/24 15:54 Completed ECG Data Tracing #1: I reviewed this ECG and interpreted as documented below: Normal sinus rhythm with a ventricular rate of [address] changes concerning for ischemia. Normal axis and intervals. ECG initial impression date: 10/25/24 ECG initial impression time: 15:20 Medical Decision Narrative: In summary, this patient is a 43-year-old male presenting to the Emergency Department for evaluation of left arm weakness and tingling. Differential diagnoses considered include but are not limited to acute CVA, recrudescence of prior stroke due to other mechanism such as recent illness, hypoglycemia, electrolyte derangements, etc., peripheral nerve paresthesia related to sleeping on his arm wrong. Ruling out the most morbid conditions drove assessment. It should be noted patient's history includes prior CVA which may or may not be at goal therapy. This complicates all aspects of care by increasing patient's risk for morbidity. I reviewed patient's past medical records and noted evaluation 04/16/2024 for similar concerns and complaints, except his left leg appeared to be affected at that time. Workup was reassuring at that time, symptoms improved and he was deemed to be appropriate for discharge home. On exam, the patient has an NIH stroke scale of 2 with a last known normal of 2:30 AM. Fingerstick glucose normal upon arrival. He has left upper extremity drift but does not hit bed and subjective decrease in sensation, which is present from prior stroke but he states is worse than usual. He seems to have preserved shoulder movements, but significantly limited fine motor skills of his left hand. He notes this is new. He is otherwise neurologically intact and well-appearing. No other concerns or complaints, no recent illnesses noted. Patient was stroke alerted and taken immediately to CT scans for stroke evaluation. Workup included lab evaluation to evaluate for metabolic and cardiac derangements as well as stroke CTs including CT head, CT angiogram of the head and neck. I independently interpreted CT prior to the radiologist read and noted no intracranial hemorrhage or large space-occupying lesion. Please see their read for final interpretation. I had an interactive discussion with Dr. Chahal interventional neurologist at who recommended no large vessel occlusion noted. I considered thrombolytics such as tPA or TNK, however patient presents outside of window based on his last known normal. I considered thrombectomy, however the patient has no large vessel occlusion. EKG obtained is reassuring. Labs were obtained that demonstrated mild leukocytosis, which is nonspecific. Chemistry demonstrates mild hypokalemia, for which oral potassium was ordered. He is UDS is positive for marijuana, no concerns for urinary tract infection On reassessment, patient had persistent neurologic symptoms. Given this, I feel he would benefit from admission for continued evaluation and management considering possible MRI of the brain. I had an interactive discussion with the hospitalist who admitted the patient in stable condition Critical Care Critical Care Time Critical Care Time: Yes Attestation: On 10/25/24, the high probability of a clinically significant, sudden or life threatening deterioration of the following system(s) required my full and direct attention, intervention and personal management. The time I documented below is in addition to time spent performing reported procedures but includes the following listed in this critical care notation. Total Time Total Critical Care Time: 40
[2024-10-25 15:27] LABS: Basophils # 0.1 K/mm3 (0-0.2); Basophils % 0.5 % (0.1-2.0); Eosinophils # 0.3 K/mm3 (0.0-0.4); Eosinophils % 2.3 % (0.1-12.0); Hematocrit 44.3 % (42.0-52.0); Hemoglobin 15.3 g/dL (14.1-18.0); Lymphocytes # 3.1 K/mm3 (0.7-4.5); Lymphocytes % 23.1 % (10-50); Mean Corpuscular HGB Conc 34.5 g/dL (31.8-35.4); Mean Corpuscular Hemoglobin 31.2 pg (27.0-31.2); Mean Corpuscular Volume 90.4 fl (80-94); Mean Platelet Volume 9.5 fl (7.4-10.4); Monocytes # 0.9 K/mm3 (0.1-1.0); Monocytes % 6.3 % (1.7-9.3); Neutrophils # 9.1 K/mm3 (1.8-7.8); Neutrophils % 67.5 % (37.0-80.0); Platelet Count 245 K/mm3 (142-424); Red Cell Distribution Width 13.1 % (11.5-17.5); White Blood Count 13.5 K/mm3 (4.8-10.8)
[2024-10-25] MEDS: SODIUM CHLORIDE 0.9% 10ML FLUSH SYRINGE 10 ML IV (15:30)
[2024-10-25] MEDS: SODIUM CHLORIDE 0.9% 10ML SYR (RAD ONLY) 10 ML IV (15:30)
[2024-10-25] MEDS: 0.9 % SODIUM CHLORIDE 50 ML VIAL IV (15:30)
[2024-10-25 15:36] LABS: Activated Partial Thrombo Time 27.9 seconds (22.5-28.5); INR 0.94 (0.9-1.1); Prothrombin Time 10.4 seconds (9.2-12.1)
--- NOTE | 2024-10-25 15:36 | PC.NURSE ---
jesús back to room with pt from ct scan
[2024-10-25 15:39] LABS: Chloride 100 mmol/L (98-107)
[2024-10-25 15:40] LABS: Albumin Level 4.8 g/dl (3.5-5.0); Potassium 3.3 mmoL/L (3.5-5.1); Sodium 138 mmol/L (136-145)
[2024-10-25 15:42] LABS: Alanine Aminotransferase 21 U/L (12-78); Blood Urea Nitrogen 7 mg/dl (9-20); Estimated Glomerular Filt Rate 93 ml/min (>60); GFR (African American) 112 ML/MIN (>60)
[2024-10-25 15:43] LABS: Albumin/Globulin Ratio 1.8 (1.1-1.8); Alkaline Phosphatase 77 U/L (38-126); Anion Gap 14.3 mEq/L (5-15); Aspartate Amino Transferase 35 U/L (17-59); Bilirubin,Total 0.8 mg/dl (0.2-1.3); Calcium 9.3 mg/dl (8.4-10.2); Carbon Dioxide 27 mmol/L (22.0-30.0); Chol/HDL Ratio 6.6 (1-3.5); Cholesterol 204 mg/dl (140-200); Globulin 2.6 g/dL (1.3-3.2); Glucose 115 mg/dl (74-100); HDL Cholesterol 31 mg/dl (40-60); Total Protein,Serum 7.4 g/dl (6.3-8.2); Triglycerides 158 mg/dl (30-150); VLDL Cholesterol 32 mg/dL (0-40)
[2024-10-25 15:50] LABS: Ethyl Alcohol < 10 mg/dl (0-10)
[2024-10-25 15:54] LABS: Direct LDL Cholesterol 125.23 mg/dL (100-129)
[2024-10-25 16:00] LABS: Microscopic, Urine URINE MICROSCOPIC (MICROSCOPIC)
[2024-10-25 16:04] LABS: Appearance,Urine CLEAR (Clear); Bilirubin,Urine Negative (Negative); Blood, Urine Negative (Negative); Color,Urine YELLOW (Yellow); Glucose,Urine (UA) Negative (Negative); Ketones,Urine Negative (Negative); Leukocyte Esterase,Urine Negative (Negative); Nitrate,Urine Negative (Negative); Protein,Urine Negative (Negative); Urobilinogen,Urine 0.2 EU/dl (0.2)
[2024-10-25 16:19] LABS: Phencyclidine Screen,Urine Negative ng/ml (<25)
[2024-10-25 16:20] LABS: Troponin I < 0.01 ng/ml (0.00-0.034)
--- NOTE | 2024-10-25 16:26 | PC.NURSE ---
collected urine, sent to lab.
[2024-10-25 16:32] LABS: Benzodiazepines Screen,Urine Negative ng/ml (<200)
[2024-10-25 16:33] LABS: Amphetamine/Metha Screen,Urine Negative ng/ml (<1000); Barbiturates Screen,Urine Negative ng/ml (<200)
[2024-10-25 16:34] LABS: Cannabinoid Screen,Urine Positive ng/ml (<50)
[2024-10-25 16:35] LABS: Cocaine Screen,Urine Negative ng/ml (<300); Methadone Screen,Urine Negative ng/ml (<300)
[2024-10-25 16:36] LABS: Opiate Screen,Urine Negative ng/ml (<300)
--- NOTE | 2024-10-25 16:50 | PC.NURSE ---
urine sent to the lab
[2024-10-25] MEDS: POTASSIUM CHLORIDE 20MEQ TAB 60 MEQ PO (16:54)
[2024-10-25 17:09] LABS: Bacteria,Urine Trace /lpf; Squamous Epithelial Cell,Urine Occasional #/hpf (0-5)
--- NOTE | 2024-10-25 17:25 | PC.NURSE ---
spoke with night warehouse selector for bed placement
--- NOTE | 2024-10-25 17:28 | PC.NURSE ---
pt admit to room 217
--- NOTE | 2024-10-25 17:33 | PC.NURSE ---
Lyndsey Sutton RN Calling Report
--- NOTE | 2024-10-25 17:35 | PC.NURSE ---
report called to MURRAY Heredia.
--- NOTE | 2024-10-25 17:46 | PC.NURSE ---
arrived by w/c from ED
[2024-10-25] MEDS: ASPIRIN 325MG TABLET 325 MG PO (18:08)
[2024-10-25] MEDS: CLOPIDOGREL 75MG TAB 75 MG PO (18:08)
--- NOTE | 2024-10-25 18:38 | EXP.HP ---
History of Present Illness *Admission Date: 10/25/24 *Reason for visit:: Strokelike symptoms, left arm weakness *History of present illness: Mr. Dang is a 43-year-old male who does not regularly follow with a primary care provider. Has a history of a stroke with residual left upper extremity deficits. Also has history of elevated blood pressure, tobacco use disorder. Continues to smoke. On no medications at this time. He presented to the ER with concern for left upper extremity weakness and numbness. Reports he had a stroke at the age of 36 leaving him with some left-sided deficits. 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 Went to bed for a nap around 2:30 in the morning with normal use of his left arm. When he woke up around noon his arm was weak, tingling and he could not move his hand. He initially waited to come in as he thought maybe he slept on it wrong. He has not regained use of his hand as the tingling has improved. Denies headache, change in vision, nausea or vomiting, chest pain, syncope. No recent illness. No fever or cough. Workup in the ER with CT was unremarkable with no acute findings. Patient has elevated cholesterol. Continues to smoke. Labs otherwise unremarkable. Medicine consulted for therapy eval and MRI to evaluate for acute on chronic stroke On arrival to the floor, patient is pleasant alert and oriented x 4. In no acute distress. But keeps complaining of inability to move left hand. Agreeable to plan of MRI, medical management, therapy eval. Stable on room air. [facility] Disclaimer: The information contained in this section may have been updated after the patient was seen, as this information can be updated by other users. Medical History (Updated 10/25/24 @ 19:05 by Bryan Rees MD) Groin strain Surgical History (Updated 10/25/24 @ 18:01 by Earnestine Carballo RN) H/O wrist surgery History of ankle surgery No significant past surgical history Family History Other No significant family history Social History Smoking Status: Current every day smoker tobacco type: cigarettes packs per day: 20 alcohol intake: never substance use type: denies use current occupational status: unemployed Travel in the last 8 weeks: None Have you lived/traveled outside US in past 30 days?: No Contact w/someone who lives/traveled outside US past 30 days?: No Exposure to someone with infectious disease in past 14 days?: No Do you have a fever (greater than 100.4 F or 38 C)?: No Have you tested positive for COVID-19: No Exposed to someone with COVID-19 in past 14 days?: No Do you have a sore throat?: No Do you have a cough?: No Do you have any weakness?: Yes Do you have any diarrhea?: No Are you experiencing any unusual bleeding?: No Do you have any muscle aches/pain?: No Do you have any abdominal pain?: No Are you experiencing loss of taste or smell?: No Other Medical History Have you received the Flu Vaccine for this season: No Have you received the Pneumonia Vaccine: No Review of Systems Review of Systems Review of systems (narrative): 14 point review of systems performed, pertinent positives and negatives as per [facility] Meds Home Medications and Allergies Home Medications ?Medication ?Instructions ?Recorded ?Confirmed ?Type No Known Home Medications 09/16/23 10/25/24 History New Prescriptions to Start Prescriptions: Allergies Allergy/AdvReac Type Severity Reaction Status Date / Time No Known Allergies Allergy Verified 09/16/23 15:00 Exam Data for Last 24 hours Vital signs and Labs for Last 24 Hours: Temp Pulse Resp BP Pulse Ox O2 Del Method 97.6 F 74 18 157/88 H 100 Room Air 10/25/24 18:20 10/25/24 18:20 10/25/24 18:20 10/25/24 18:20 10/25/24 18:20 10/25/24 18:20 Laboratory Results - last 24 hr 10/25/24 15:17: WBC 13.5 H, RBC 4.90, Hgb 15.3, Hct 44.3, MCV 90.4, MCH 31.2, MCHC 34.5, RDW 13.1, Plt Count 245, MPV 9.5, Neut % (Auto) 67.5, Lymph % (Auto) 23.1, [place] % (Auto) 6.3, Eos % (Auto) 2.3, Baso % (Auto) 0.5, Neut # (Auto) 9.1 H, Lymph # (Auto) 3.1, [place] # (Auto) 0.9, Eos # (Auto) 0.3, Baso # (Auto) 0.1, PT 10.4, INR 0.94, APTT 27.9, Sodium 138, Potassium 3.3 L, Chloride 100, Carbon Dioxide 27, Anion Gap 14.3, BUN 7 L, Creatinine 0.90, Estimated GFR 93, Est GFR ( Amer) 112, Glucose 115 H, Calcium 9.3, Total Bilirubin 0.8, AST 35, ALT 21, Alkaline Phosphatase 77, Troponin I < 0.01, Total Protein 7.4, Albumin 4.8, Globulin 2.6, Albumin/Globulin Ratio 1.8, Triglycerides 158 H, Cholesterol 204 H, LDL Cholesterol Direct 125.23, VLDL Cholesterol 32, HDL Cholesterol 31 L, Cholesterol/HDL Ratio 6.6 H, Plasma/Serum Alcohol < 10 10/25/24 15:54: Urine Color Yellow, Urine Appearance Clear, Urine pH 7.0, Ur Specific [place] 1.010, Urine Protein Negative, Urine Glucose (UA) Negative, Urine Ketones Negative, Urine Blood Negative, Urine Nitrate Negative, Urine Bilirubin Negative, Urine Urobilinogen 0.2, Ur Leukocyte Esterase Negative, Urine RBC None, Urine WBC 5-10, Ur Squamous Epith Cells Occasional, Urine Bacteria Trace, Urine Opiates Screen Negative, Urine Methadone Screen Negative, Ur Barbituates Screen Negative, Ur Phencyclidine Scrn Negative, Ur Amphetamines Screen Negative, U Benzodiazepines Scrn Negative, Urine Cocaine Screen Negative, U Marijuana (THC) Screen Positive H I & O for Last 24 hours: Intake & Output 10/22/24 10/23/24 10/24/24 10/25/24 23:59 23:59 23:59 23:59 Intake Total 360 / 360 Balance 360 / 360 Weight 61.377 kg Constitutional Constitutional: no acute distress, thin, chronically ill appearing and cooperative *Routine HEENT Exam Head: Present normocephalic Eye: Present EOMI and PERRL ENT: Present mucous membranes moist *Routine Neck Exam Neck: Present supple; Absent lymphadenopathy *Routine Respiratory Exam Respiratory: Present CTA bilaterally; Absent rhonchi or wheezes *Routine Cardiovascular Exam Cardiovascular: Present RRR *Routine Abdominal Exam Abdominal: Present soft and normoactive bowel sounds; Absent tenderness *Routine Rectal Exam Rectal:: deferred *Routine Genitalia Exam Genitalia:: deferred *Routine Extremities Exam Extremities: Absent cyanosis, clubbing or edema Comments: Scar on left forearm *Routine Skin Exam Skin: Present warm; Absent rash *Routine Neurological Exam Neurological: Present alert, oriented X3 and normal speech; Absent altered mental status Comments: Able to move right upper extremity and bilateral lower extremities. Has mild asymmetry of left side of face, left corner of mouth does not smile. Able to shrug left shoulder, cannot move left forearm or hand. Assessment and Plan *Assessment and plan (1) Stroke-like symptoms: Status: Acute Category: Medical Code(s): R29.90 - Unspecified symptoms and signs involving the nervous system (2) Hypokalemia: Status: Acute Category: Medical Code(s): E87.6 - Hypokalemia (3) Left arm weakness: Status: Acute Category: Medical Code(s): R29.898 - Other symptoms and signs involving the musculoskeletal system (4) Tobacco use disorder: Status: Acute Category: Medical Code(s): F17.200 - Nicotine dependence, unspecified, uncomplicated Plan 43-year-old male with history of stroke at the age of 36 leaving left upper extremity deficits. Continues to smoke. Presents with acute onset of progressive loss of function of left hand. CT negative in the ER. Discussed case with ER physician, request admission for therapy eval and MRI. Agreed to admit for further management. Hemodynamically stable. Will allow for permissive hypertension. Systolic in the 150s. In no acute distress. Problems addressed as follows: Strokelike symptoms Left arm weakness -Per my review, CT with no acute stroke. Will admit for MRI in the morning. -Loaded with aspirin 325 mg once. Will continue aspirin 81 mg daily and Plavix 75 mg daily for 1 month. -Therapy to evaluate the morning. Anticipate discharge in the morning after therapy eval and dispo plan. Patient will need PCP for close follow-up -Will allow for permissive hypertension, maintain blood pressure less than 180/110. No blood pressure meds at this time. -Lipid panel with elevated cholesterol.Total cholesterol 204, LDL 125, goal cholesterol less than 55. Kidney function normal with BUN 7, creatinine 0.9. Potassium low at 3.3. Replaced with 60 mEq orally in the ER. -White count 13.5, hemoglobin 15.3. Unclear the significance of leukocytosis. Will have repeat CBC, CMP, magnesium ordered for the morning. No indication for antibiotics at this time. -UDS positive for marijuana Tobacco use disorder: Continues to smoke. Given previous strokes, counseled on risk of continued neurovascular injury. Nicotine patch while admitted Full code Regular diet
[2024-10-25 19:40] LABS: Troponin I < 0.01 ng/ml (0.00-0.034)
[2024-10-25] MEDS: ATORVASTATIN 40MG TABLET 40 MG PO (20:53)
[2024-10-25 22:07] LABS: Troponin I < 0.01 ng/ml (0.00-0.034)
[2024-10-25 23:35] LABS: Hepatitis C Ab Qual. W/ RFX NEGATIVE (Negative)
[2024-10-26 00:15] LABS: HIV Combo NEGATIVE (Negative)
[2024-10-26 04:00] VITALS: BP 124/22; PULSE 97; RESP 18; TEMP 36.8; O2SAT 97; BMI 18.9
--- NOTE | 2024-10-26 04:49 | PC.NURSE ---
Pt is A/O X 4. He has been able to ambulate short distances to BR. Pt with continued weakness to right UE with no further neuro deficits noted. Pt tolerating regular diet. He has no pain or discomfort. He has slept on and off throughout the night
[2024-10-26 06:42] LABS: Basophils # 0.1 K/mm3 (0-0.2); Basophils % 0.7 % (0.1-2.0); Eosinophils # 0.5 K/mm3 (0.0-0.4); Eosinophils % 3.7 % (0.1-12.0); Hematocrit 42.1 % (42.0-52.0); Hemoglobin 14.3 g/dL (14.1-18.0); Lymphocytes # 4.9 K/mm3 (0.7-4.5); Lymphocytes % 40.2 % (10-50); Mean Corpuscular Hemoglobin 30.6 pg (27.0-31.2); Mean Corpuscular Volume 90.1 fl (80-94); Mean Platelet Volume 9.9 fl (7.4-10.4); Monocytes # 0.8 K/mm3 (0.1-1.0); Monocytes % 6.4 % (1.7-9.3); Neutrophils # 5.9 K/mm3 (1.8-7.8); Neutrophils % 48.8 % (37.0-80.0); Platelet Count 224 K/mm3 (142-424); Red Blood Count 4.67 M/mm3 (4.60-6.20); Red Cell Distribution Width 13.2 % (11.5-17.5); White Blood Count 12.1 K/mm3 (4.8-10.8)
[2024-10-26 07:05] LABS: Chloride 106 mmol/L (98-107); Potassium 3.8 mmoL/L (3.5-5.1); Sodium 138 mmol/L (136-145)
[2024-10-26 07:07] LABS: Blood Urea Nitrogen 6 mg/dl (9-20); Creatinine Clearance Estimated 104 mL/min (50-200); Estimated Glomerular Filt Rate 106 ml/min (>60); GFR (African American) 128 ML/MIN (>60)
[2024-10-26 07:08] LABS: Alanine Aminotransferase 17 U/L (12-78); Albumin/Globulin Ratio 1.7 (1.1-1.8); Alkaline Phosphatase 72 U/L (38-126); Anion Gap 11.8 mEq/L (5-15); Aspartate Amino Transferase 26 U/L (17-59); Bilirubin,Total 0.2 mg/dl (0.2-1.3); Calcium 8.7 mg/dl (8.4-10.2); Carbon Dioxide 24 mmol/L (22.0-30.0); Globulin 2.3 g/dL (1.3-3.2); Glucose 103 mg/dl (74-100); Magnesium 1.9 mg/dl (1.6-2.3); Total Protein,Serum 6.3 g/dl (6.3-8.2)
--- NOTE | 2024-10-26 07:36 | MR_ITS ---
FINAL REPORT TECHNIQUE: Multiplanar MR without contrast CLINICAL HISTORY: LEFT ARM WEAKNESS FINDINGS: Diffusion sequences show no signal abnormality to indicate acute infarct. There are old right basal ganglia lacunar infarcts. There is no edema. Mild chronic white matter changes are seen in the right hemisphere. There is ex vacuo enlargement of the right ventricle. Minimal chronic hemorrhage is seen at the site of old right basal ganglia infarct. IMPRESSION: No acute hemorrhage or edema. Old right basal ganglier lacunar infarcts and chronic changes above. Reviewed, Interpreted and Dictated by Claribel Esparza MD Transcribed by Marianela Burkett Authenticated and [facility]
--- NOTE | 2024-10-26 07:49 | PC.NURSE ---
Patient left floor with radiology for MRI
[2024-10-26 08:00] VITALS: BP 129/73; PULSE 71; RESP 16; TEMP 36.7; O2SAT 99
[2024-10-26] MEDS: ASPIRIN EC 81MG TABLET 81 MG PO (09:28)
[2024-10-26 09:31] LABS: Thyroid Stimulating Hormone 1.63 uIU/mL (0.465-4.68)
--- NOTE | 2024-10-26 10:11 | HMH.OTEV ---
OT Inpatient Evaluation Rehab OT IP Evaluation Start: 10/25/24 19:07 Freq: ONCE Status: Active Protocol: Document 10/26/24 10:01 [facility] (Rec: 10/26/24 10:10 [facility] [id number]) Rehab OT IP Assessment Subjective History Pt oriented x 3 on arrival. Pt agreeable to engage in therapy evaluation. Pt admitted on 10/25/24 due to LUE weakness and stroke like symptoms. History and physical: Mr. Dang is a 43-year-old male who does not regularly follow with a primary care provider. Has a history of a stroke with residual left upper extremity deficits. Also has history of elevated blood pressure, tobacco use disorder. Continues to smoke. On no medications at this time. He presented to the ER with concern for left upper extremity weakness and numbness. Reports he had a stroke at the age of 36 leaving him with some left- sided deficits. 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 Went to bed for a nap around 2:30 in the morning with normal use of his left arm. When he woke up around noon his arm was weak, tingling and he could not move his hand. He initially waited to come in as he thought maybe he slept on it wrong. He has not regained use of his hand as the tingling has improved. Denies headache, change in vision, nausea or vomiting, chest pain , syncope. No recent illness. No fever or cough. Workup in the ER with CT was unremarkable with no acute findings. Patient has elevated cholesterol. Continues to smoke. Labs otherwise unremarkable. Medicine consulted for therapy eval and MRI to evaluate for acute on chronic stroke On arrival to the floor, patient is pleasant alert and oriented x 4. In no acute distress. But keeps complaining of inability to move left hand. Agreeable to plan of MRI, medical management, therapy eval. Stable on room air Subjective Prior to being in the hospital , pt lived with friends. Pt claims normally he is independent with all ADLs and IADLs. Pt does not require any type of AE during functional transfers. Pt also still drives. Objective Patient Orientation Person,Place,Birthday Right Upper Extremity Gross ROM WFL Left Upper Extremity Gross ROM Mod Limitation 50% Shoulder ROM Limitations Muscle Weakness Elbow ROM Limitations Muscle Weakness Wrist Limitations of Range of Motion Muscle Weakness Bed Mobility bed mobility-scooting,bed mobility - supine/sit Assist Level Independent Transfer Training Sit/Stand Transfer Assist Level Independent Chair Transfer Ability Supervision/Stand by Lower Body Dressing Ability Standby Assistance Rehab OT IP prob,goals,plan Problems Date of Evaluation: 10/26/24 Rehab Potential Rehab Potential Innapropriate for Skilled Therapy Discharge Plan OT Discharge Plan Pt appears to be at his baseline with functional transfers and ADL independence . Pt can return home with friends/family once he is medically stable per physician . Pt would benefit from Outpatient OT evaluation to address L UE weakness. Pt agreeable with this plan. Eval Complexity Eval Charge Codes 99548 - Moderate Complexity PHYSICIAN CERTIFICATION: I certify the specified therapy services for Neo Dang are required, authorized, and reviewed every 30 days.
--- NOTE | 2024-10-26 11:41 | SW/DCPLANNER ---
Per OT outpatient services are recommended. Patient is agreeable to return to [facility] outpatient OT and this will be set up at time of discharge. I have updated patient's nurse.
[2024-10-26] MEDS: MAGNESIUM SULFATE IN WATER 2 GM/50 ML PIGGYBACK IV (11:53)
--- NOTE | 2024-10-26 12:16 | P.DS_ITS ---
General Admission date:: 10/25/24 HPI HPI HPI: Mr. Dang is a 43-year-old male who does not regularly follow with a primary care provider. Has a history of a stroke with residual left upper extremity deficits. Also has history of elevated blood pressure, tobacco use disorder. Continues to smoke. On no medications at this time. He presented to the ER with concern for left upper extremity weakness and numbness. Reports he had a s troke at the age of 36 leaving him with some left-sided deficits. 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 Went to bed for a nap around 2:30 in the morning with normal use of his left arm. When he woke up around noon his arm was weak, tingling and he could not move his hand. He initially waited to come in as he thought maybe he slept on it wrong. He has not regained use of his hand as the tingling has improved. Denies headache, change in vision, nausea or vomiting, chest pain, syncope. No recent illness. No fever or cough. Workup in the ER with CT was unremarkable with no acute findings. Patient has elevated cholesterol. Continues to smoke. Labs otherwise unremarkable. Medicine consulted for therapy eval and MRI to evaluate for acute on chronic stroke On arrival to the floor, patient is pleasant alert and oriented x 4. In no acute distress. But keeps complaining of inability to move left hand. Agreeable to plan of MRI, medical management, therapy eval. Stable on room air. Hospital Course Hospital Course Hospital Course: Neo Jones is a 44-year-old male with a medical history significant for CVA with residual left arm weakness who presents with transient left arm weakness and was admitted for CVA workup. #TIA #CVA with residual left arm weakness ? Presented with transient worsening of left arm weakness. No other focal neurological deficits. ? CT head, CTA head/neck, brain MRI unremarkable for acute stroke/hemorrhagic or LVO findings. ? Patient continues to smoke, though he states he will strongly consider cessation. Does not want nicotine patches at this time. ? A1c 5.0%, LDL 125 mg. ? Patient reportedly already takes aspirin and atorvastatin, though unable to find in full history. ? Discharged with aspirin 81 mg, Plavix 75 mg, atorvastatin 40 mg. DAPT for 21 days. ? Strongly advised patient to follow-up with his PCP within 2 weeks for further risk factor modification. Exam Data for Last 24 hours Vital signs and Labs for Last 24 Hours: Temp Pulse Resp BP Pulse Ox O2 Del Method 98.1 F 71 16 129/73 99 Room Air 10/26/24 08:00 10/26/24 08:00 10/26/24 08:00 10/26/24 08:00 10/26/24 08:00 10/26/24 09:00 Laboratory Results - last 24 hr 10/25/24 15:17: WBC 13.5 H, RBC 4.90, Hgb 15.3, Hct 44.3, MCV 90.4, MCH 31.2, MCHC 34.5, RDW 13.1, Plt Count 245, MPV 9.5, Neut % (Auto) 67.5, Lymph % (Auto) 23.1, [place] % (Auto) 6.3, Eos % (Auto) 2.3, Baso % (Auto) 0.5, Neut # (Auto) 9.1 H, Lymph # (Auto) 3.1, [place] # (Auto) 0.9, Eos # (Auto) 0.3, Baso # (Auto) 0.1, PT 10.4, INR 0.94, APTT 27.9, Sodium 138, Potassium 3.3 L, Chloride 100, Carbon Dioxide 27, Anion Gap 14.3, BUN 7 L, Creatinine 0.90, Estimated GFR 93, Est GFR ( Amer) 112, Glucose 115 H, Calcium 9.3, Total Bilirubin 0.8, AST 35, ALT 21, Alkaline Phosphatase 77, Troponin I < 0.01, Total Protein 7.4, Albumin 4.8, Globulin 2.6, Albumin/Globulin Ratio 1.8, Triglycerides 158 H, Cholesterol 204 H , LDL Cholesterol Direct 125.23, VLDL Cholesterol 32, HDL Cholesterol 31 L, Cholesterol/HDL Ratio 6.6 H, Plasma/Serum Alcohol < 10 10/25/24 15:54: Urine Color Yellow, Urine Appearance Clear, Urine pH 7.0, Ur Specific [place] 1.010, Urine Protein Negative, Urine Glucose (UA) Negative, Urine Ketones Negative, Urine Blood Negative, Urine Nitrate Negative, Urine Bilirubin Negative, Urine Urobilinogen 0.2, Ur Leukocyte Esterase Negative, Urine RBC None, Urine WBC 5-10, Ur Squamous Epith Cells Occasional, Urine Bacteria Trace, Urine Opiates Screen Negative, Urine Methadone Screen Negative, Ur Barbituates Screen Negative, Ur Phencyclidine Scrn Negative, Ur Amphetamines Screen Negative, U Benzodiazepines Scrn Negative, Urine Cocaine Screen Negative, U Marijuana (THC) Screen Positive H 10/25/24 18:25: Troponin I < 0.01 10/25/24 21:29: Troponin I < 0.01, HCV Ab SIMON w/Rflx PCR Qn Negative, HIV Ag/Ab Combo Qual Negative 10/26/24 05:55: WBC 12.1 H, RBC 4.67, Hgb 14.3, Hct 42.1, MCV 90.1, MCH 30.6, MCHC 34.0, RDW 13.2, Plt Count 224, MPV 9.9, Neut % (Auto) 48.8, Lymph % (Auto) 40.2, [place] % (Auto) 6.4, Eos % (Auto) 3.7, Baso % (Auto) 0.7, Neut # (Auto) 5.9, Lymph # (Auto) 4.9 H, [place] # (Auto) 0.8, Eos # (Auto) 0.5 H, Baso # (Auto) 0.1, Sodium 138, Potassium 3.8, Chloride 106, Carbon Dioxide 24, Anion Gap 11.8, BUN 6 L, Creatinine 0.80, Estimated Creat Clear 104, Estimated GFR 106, Est GFR ( Amer) 128, Glucose 103 H, Hemoglobin A1c 5.0, Calcium 8.7, Magnesium 1.9, Total Bilirubin 0.2, AST 26 D, ALT 17, Alkaline Phosphatase 72, Total Protein 6.3, Albumin 4.0 D, Globulin 2.3, Albumin/Globulin Ratio 1.7, TSH 1.63 I & O for Last 24 hours: Intake & Output 10/23/24 10/24/24 10/25/24 10/26/24 23:59 23:59 23:59 23:59 Intake Total 360 / 1110 1230 / 1230 Balance 360 / 1110 1230 / 1230 Weight 61.377 kg 61.377 kg Constitutional Constitutional: no acute distress *Routine HEENT Exam Head: Present normocephalic Eye: Present EOMI and PERRL ENT: Present mucous membranes moist *Routine Neck Exam Neck: Present supple; Absent lymphadenopathy *Routine Respiratory Exam Respiratory: Present CTA bilaterally *Routine Cardiovascular Exam Cardiovascular: Present RRR *Routine Abdominal Exam Abdominal: Present soft and normoactive bowel sounds; Absent tenderness *Routine Extremities Exam Extremities: Absent cyanosis, clubbing or edema Comments: Left arm motor strength 4/5 compared to right. *Routine Skin Exam Skin: Present warm; Absent rash *Routine Neurological Exam Neurological: Present alert and oriented X3 Results Data Completed and Pending Labs on day of discharge: Labs from last 24 hours 10/26/24 10/25/24 10/25/24 05:55 21:29 18:25 WBC 12.1 H RBC 4.67 Hgb 14.3 Hct 42.1 MCV 90.1 MCH 30.6 MCHC 34.0 RDW 13.2 Plt Count 224 MPV 9.9 Neut % (Auto) 48.8 Lymph % (Auto) 40.2 [place] % (Auto) 6.4 Eos % (Auto) 3.7 Baso % (Auto) 0.7 Neut # (Auto) 5.9 Lymph # (Auto) 4.9 H [place] # (Auto) 0.8 Eos # (Auto) 0.5 H Baso # (Auto) 0.1 PT INR APTT Sodium 138 Potassium 3.8 Chloride 106 Carbon Dioxide 24 Anion Gap 11.8 BUN 6 L Creatinine 0.80 Estimated Creat Clear 104 Estimated GFR 106 Est GFR ( Amer) 128 Glucose 103 H Hemoglobin A1c 5.0 Calcium 8.7 Magnesium 1.9 Total Bilirubin 0.2 AST 26 D ALT 17 Alkaline Phosphatase 72 Troponin I < 0.01 < 0.01 Total Protein 6.3 Albumin 4.0 D Globulin 2.3 Albumin/Globulin Ratio 1.7 Triglycerides Cholesterol LDL Cholesterol Direct VLDL Cholesterol HDL Cholesterol Cholesterol/HDL Ratio TSH 1.63 Urine Color Urine Appearance Urine pH Ur Specific [place] Urine Protein Urine Glucose (UA) Urine Ketones Urine Blood Urine Nitrate Urine Bilirubin Urine Urobilinogen Ur Leukocyte Esterase Urine RBC Urine WBC Ur Squamous Epith Cells Urine Bacteria Urine Opiates Screen Urine Methadone Screen Ur Barbituates Screen Ur Phencyclidine Scrn Ur Amphetamines Screen U Benzodiazepines Scrn Urine Cocaine Screen U Marijuana (THC) Screen Plasma/Serum Alcohol HCV Ab SIMON w/Rflx PCR Qn Negative HIV Ag/Ab Combo Qual Negative 10/25/24 10/25/24 15:54 15:17 WBC 13.5 H RBC 4.90 Hgb 15.3 Hct 44.3 MCV 90.4 MCH 31.2 MCHC 34.5 RDW 13.1 Plt Count 245 MPV 9.5 Neut % (Auto) 67.5 Lymph % (Auto) 23.1 [place] % (Auto) 6.3 Eos % (Auto) 2.3 Baso % (Auto) 0.5 Neut # (Auto) 9.1 H Lymph # (Auto) 3.1 [place] # (Auto) 0.9 Eos # (Auto) 0.3 Baso # (Auto) 0.1 PT 10.4 INR 0.94 APTT 27.9 Sodium 138 Potassium 3.3 L Chloride 100 Carbon Dioxide 27 Anion Gap 14.3 BUN 7 L Creatinine 0.90 Estimated Creat Clear Estimated GFR 93 Est GFR ( Amer) 112 Glucose 115 H Hemoglobin A1c Calcium 9.3 Magnesium Total Bilirubin 0.8 AST 35 ALT 21 Alkaline Phosphatase 77 Troponin I < 0.01 Total Protein 7.4 Albumin 4.8 Globulin 2.6 Albumin/Globulin Ratio 1.8 Triglycerides 158 H Cholesterol 204 H LDL Cholesterol Direct 125.23 VLDL Cholesterol 32 HDL Cholesterol 31 L Cholesterol/HDL Ratio 6.6 H TSH Urine Color Yellow Urine Appearance Clear Urine pH 7.0 Ur Specific [place] 1.010 Urine Protein Negative Urine Glucose (UA) Negative Urine Ketones Negative Urine Blood Negative Urine Nitrate Negative Urine Bilirubin Negative Urine Urobilinogen 0.2 Ur Leukocyte Esterase Negative Urine RBC None Urine WBC 5-10 Ur Squamous Epith Cells Occasional Urine Bacteria Trace Urine Opiates Screen Negative Urine Methadone Screen Negative Ur Barbituates Screen Negative Ur Phencyclidine Scrn Negative Ur Amphetamines Screen Negative U Benzodiazepines Scrn Negative Urine Cocaine Screen Negative U Marijuana (THC) Screen Positive H Plasma/Serum Alcohol < 10 HCV Ab SIMON w/Rflx PCR Qn HIV Ag/Ab Combo Qual DS: Diagnosis Discharge Diagnosis (1) Stroke-like symptoms: Status: Acute Code(s): R29.90 - Unspecified symptoms and signs involving the nervous system (2) Hypokalemia: Status: Acute Code(s): E87.6 - Hypokalemia (3) Left arm weakness: Status: Acute Code(s): R29.898 - Other symptoms and signs involving the musculoskeletal system (4) Tobacco use disorder: Status: Acute Code(s): F17.200 - Nicotine dependence, unspecified, uncomplicated Meds Home Medications and Allergies Home Medications ?Medication ?Instructions ?Recorded ?Confirmed ?Type aspirin 81 mg tablet,delayed 81 mg PO DAILY 30 days #30 tabs 10/26/24 Rx release atorvastatin 40 mg tablet 40 mg PO HS 30 days #30 tabs 10/26/24 Rx clopidogrel 75 mg tablet (Plavix) 75 mg PO DAILY 21 days #21 tabs 11/05/24 Rx New Prescriptions to Start Prescriptions: Lucas Thornton atorvastatin Evelyn,Lucas clopidogrel [Plavix] Lucas Rivas Allergies Allergy/AdvReac Type Severity Reaction Status Date / Time No Known Allergies Allergy Verified 09/16/23 15:00 Discharge Plan Disposition Patient Disposition: Home, Self-Care Condition: Good Follow up Plan Follow up with: Yesenia Salguero APRN [Nurse Practitioner] - 11/01/24 1:00 pm (occupational therapy appointmeny 11/09 at 08:00) Prescriptions/Medication Reconciliation: New atorvastatin 40 mg Tablet 40 mg PO HS 30 Days Qty: 30 0RF aspirin 81 mg Tablet,Delayed Release (Dr/Ec) 81 mg PO DAILY 30 Days Qty: 30 0RF clopidogrel [Plavix] 75 mg tablet 75 mg PO DAILY 21 Days Qty: 21 0RF Other Ambulatory Orders: Rehab Eval, OP (Routine) Timeframe: 2 Weeks Facility: [facility] - Location: Physical Therapy Ordered By: Lucas Rivas Problem Reconciliation Problems Reviewed?: Yes Patient Discharge Instructions Patient Instructions: DI for Hypokalemia, DI for Muscle Weakness Print Language: Slovenian Providers Primary Care Provider: Provider,Referral Admit Provider: Bryan Rees Attending Provider: Bryan Rees
--- NOTE | 2024-10-26 12:32 | HMH.PTEV ---
Physical Therapy Evaluation Rehab PT IP Evaluation Start: 10/25/24 19:07 Freq: ONCE Status: Active Protocol: Document 10/26/24 09:00 [facility] (Rec: 10/26/24 12:31 [facility] [id number]) Subjective/History History History 43-year-old male who does not regularly follow with a primary care provider. Has a history of a stroke with residual left upper extremity deficits. Also has history of elevated blood pressure, tobacco use disorder. Continues to smoke. On no medications at this time. He presented to the ER with concern for left upper extremity weakness and numbness. Reports he had a stroke at the age of 36 leaving him with some left- sided deficits. 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 Went to bed for a nap around 2:30 in the morning with normal use of his left arm. When he woke up around noon his arm was weak, tingling and he could not move his hand. He reports he lives with family, no ZOË the home, and he is generall y independent with all ADLs and mobility without AD at baseline. Subjective Subjective Pt has no new c/o at this time and reports hi L hand feels as if it is moving a little bit better now. Rehab PT IP Eval Objective Appearance Patient Behavior Appropriate Patient Orientation Person,Place,Time Difficulty following instructions none Speech Pattern Appropriate Ambulation Patient Able to Ambulate Yes Ambulation Observation IP General Gait Pattern Observation No Deviations/Normal Ambulation Distance (feet) 150 Ambulation Assistive Device None Ambulation Ability Independent Balance Ability to Arise Able, w/o using arms Sitting Balance Steady, safe Standing Balance Narrow stance w/o support Dynamic Standing Balance Ability Good Transfers Bed Transfer Ability Independent Chair Transfer Ability Independent Sit to Stand Bed Transfer Ability Independent Sit to Stand Chair Transfer Ability Independent ROM All Extremities PT ROM Status WFL MMT All Extremities PT MMT WFL Abnormal MMT Grade except L wrist and hand grossly 3/5. Rehab PT IP prob,goals,plan Problems Date of Evaluation: 10/26/24 Discharge Plan PT Discharge Plan Pt appears to be almost back to baseline with L hand function and is at baseline for all other mobility at this time. No current inpatient therapy needs and he is appropriate to return home once medically stable for d/c. Eval Complexity Eval Charge Codes 70295 - High Complexity PHYSICIAN CERTIFICATION: I certify the specified therapy services for Neo Robert Hurst are required, authorized, and reviewed every 30 days.
--- NOTE | 2024-10-28 10:35 | SW/DCPLANNER ---
Spoke with patients on the phone. Patients stated that he is doing well. Patients stated that they are aware of his upcoming appointment. Patients stated that they were able to get his medicine picked up from clinic pharmacy. Patient stated that they have no concerns or questions at this time. Zahra Price
== END 2024-10-26 14:04 | disposition home or self-care (01) ==
LOC: ER 17:23 → 2ND 17:45 → ER 18:14 → 2ND 18:30
PROVIDERS: Student in an Organized Health Care Education/Training Program; Admitting Provider Internal Medicine Adolescent Medicine; Emergency Provider Emergency Medicine; Visit Provider Internal Medicine Adolescent Medicine
DX: G45.9 Transient cerebral ischemic attack, unspecified (principal); I69.398 Other sequelae of cerebral infarction; F17.210 Nicotine dependence, cigarettes, uncomplicated; G83.24 Monoplegia of upper limb affecting left nondominant side; E87.6 Hypokalemia
CPT/HCPCS: 36415; 70450; 70496; 70498; 70551; 71045; 80053; 80061; 80307; 80320; 81001; 83036; 83735; 84443; 84484; 85025; 85610; 85730; 86803; 87389; 93005; 97163; 97166; 99291; G0378; G0480; J3475